=== PATIENT | female | born 1945 | race Caucasian/White ===

== ENCOUNTER → 2017-12-29 09:25 | Outpatient (POV) | payer MEDICARE, OTHER, SELFPAY ==
[2017-12-29 10:00] VITALS: BP 152/59; PULSE 81; RESP 18; TEMP 36.6; O2SAT 95
--- NOTE | 2017-12-29 11:34 | HMH.PMCON ---
Assessment and Plan (1) Degenerative disc disease, lumbar Current visit: Yes Status: Acute Category: Medical Code(s): M51.36 - Other intervertebral disc degeneration, lumbar region (2) Lumbosacral radiculopathy due to degenerative joint disease of spine Current visit: Yes Status: Acute Category: Medical Code(s): M47.27 - Other spondylosis with radiculopathy, lumbosacral region - Assessment and plan all Dx Assessment and Plan for all problems:: Plan-intrathecal pain pump trial on 01/07/2018. If successful and approved the patient may undergo placement of intrathecal pain pump system on 01/26/2018 HPI - Data of Consult Patient: new to practice Requesting Physician: Adria Leo MD Primary Care Provider: Rick Owusu MD Family Provider: Rick Owusu MD - Consult Narrative Reason for consult: DDD lumbar spine with radiculopathy, nonfunctioning stimulator system History of present illness: Ms. Laird is a 72 year old female Being considered for an intrathecal pain pump system. Patient has DDD lumbar spine with radiculopathy. She also has significant neuropathy and back pain and weakness. She had a stimulator system placed without success and pain relief. She is failed oral medications, therapy and other treatments. She has intrathecal pain pump trial on 01/07/2018. CC: Adria Leo MD [facility] History Comment: Illnesses-diabetes mellitus with insulin dependency, hypothyroidism, hyperlipidemia, hypertension, GERD, COPD with oxygen dependency, fibromyalgia, recent diagnosed glaucoma Comment: Operations-appendectomy, C-sections ?2, hysterectomy, spinal cord stimulator 2-1/2 years ago Meds Allergies Allergy/AdvReac Type Severity Reaction Status Date / Time atorvastatin [From LIPITOR] Allergy Unknown I-HIVES Unverified 11/02/17 14:19 Sulfa (Sulfonamide Allergy Unknown I-HIVES Unverified 11/02/17 14:19 Antibiotics) [SULFA (SULFONAMIDE ANTIBIOTICS)]
--- NOTE | 2017-12-29 11:37 | P.CONS_ITS ---
Assessment and Plan (1) Degenerative disc disease, lumbar Current visit: Yes Status: Acute Category: Medical Code(s): M51.36 - Other intervertebral disc degeneration, lumbar region (2) Lumbosacral radiculopathy due to degenerative joint disease of spine Current visit: Yes Status: Acute Category: Medical Code(s): M47.27 - Other spondylosis with radiculopathy, lumbosacral region - Assessment and plan all Dx Assessment and Plan for all problems:: Plan-intrathecal pain pump trial on 01/07/2018. If successful and approved the patient may undergo placement of intrathecal pain pump system on 01/26/2018 HPI - Data of Consult Patient: new to practice Requesting Physician: Adria Leo MD Primary Care Provider: Rick Owuus MD Family Provider: Rick Owusu MD - Consult Narrative Reason for consult: DDD lumbar spine with radiculopathy, nonfunctioning stimulator system History of present illness: Ms. Laird is a 72 year old female Being considered for an intrathecal pain pump system. Patient has DDD lumbar spine with radiculopathy. She also has significant neuropathy and back pain and weakness. She had a stimulator system placed without success and pain relief. She is failed oral medications, therapy and other treatments. She has intrathecal pain pump trial on 01/07/2018. CC: Adria Leo MD [facility] History Comment: Illnesses-diabetes mellitus with insulin dependency, hypothyroidism, hyperlipidemia, hypertension, GERD, COPD with oxygen dependency, fibromyalgia, recent diagnosed glaucoma Comment: Operations-appendectomy, C-sections ?2, hysterectomy, spinal cord stimulator 2-1/2 years ago Meds Allergies Allergy/AdvReac Type Severity Reaction Status Date / Time atorvastatin [From LIPITOR] Allergy Unknown I-HIVES Unverified 11/02/17 14:19 Sulfa (Sulfonamide Allergy Unknown I-HIVES Unverified 11/02/17 14:19 Antibiotics) [SULFA (SULFONAMIDE ANTIBIOTICS)]
== END ==
PROVIDERS: Family Provider Internal Medicine Adolescent Medicine; PCP Internal Medicine Adolescent Medicine; Visit Provider Surgery
DX: Z01.818 Encounter for other preprocedural examination (principal)
CPT/HCPCS: 99211

== ENCOUNTER → 2018-01-07 09:05 | Day surgery (SDC) | payer MEDICARE, OTHER, SELFPAY ==
[2018-01-07] VITALS (11 sets, daily range): BP systolic 119–184; BP diastolic 68–94; PULSE 69–94; RESP 17–20; TEMP 36.6; O2SAT 93–98; BMI 38.7
--- NOTE | 2018-01-07 10:02 | PC.NURSE ---
PHYSICAL THERAPY AT BEDSIDE FOR PRE-EVAL
--- NOTE | 2018-01-07 11:09 | HMH.PMPROC ---
- Procedure Date: 01/07/18 Time: 11:09 Anesthesiologist:: Alexis Bocanegra MD Complications:: None Pre-procedure Diagnosis:: Degenerative disc disease of lumbar spine with lumbar radiculopathy symptoms. Post-procedure Diagnosis:: Same Indications for Procedure:: This patient is a pleasant 72-year-old white female who we are seeing for low back pain with bilateral lower extremity pain. She has a spinal cord stimulator in place which is nonfunctional. She still has increasing low back pain and some leg pain. She continues on gabapentin 800 mg 4 times a day. She is failed all conservative therapy including previous spinal cord stimulation, injections, physical therapy and she is not a surgical candidate. I believe she would be a good candidate for intrathecal therapy. I have explained the risk and benefits and answered all questions. She presents for intrathecal pump trial today. Procedure Details:: Pain pump trial Informed consent was obtained and the risk and benefits of the procedure was explained to the patient. The patient was taken to the procedure room and placed prone on the procedure table. Patient was prepped and draped in sterile fashion. C-arm fluoroscopy was used to view the lumbar spine. The skin and subcutaneous tissues were anesthetized using lidocaine. I placed a 18-gauge spinal needle into the L4-5 interspace and advanced until clear CSF was obtained. After this intrathecal catheter was inserted and advanced very easily to the L1 vertebral body. The needle was withdrawn. We were able to freely withdraw clear CSF through the catheter. The catheter was secured in place and the patient was taken to recovery in stable condition. Patient tolerated the procedure well with no complications. After obtaining one set of vitals patient was bolused with 25 mcg of intrathecal fentanyl single shot. We reevaluated the patient after 30 minutes to 1 hour. She was also reassessed by physical therapy. Patient was assessed and was doing well however was not able to gauge how much pain relief she was getting. She needed to be more active to properly assess efficacy. Intrathecal catheter was removed and a Band-Aid was placed. Patient was discharged neurologically intact. Plan and Disposition:: We will follow-up with her in 2 weeks. We will reevaluate her symptoms at that time.
--- NOTE | 2018-01-07 12:00 | PC.NURSE ---
PHYSICAL THERAPY AT BEDSIDE FOR POST EVAL
--- NOTE | 2018-01-07 12:11 | PC.NURSE ---
PT STATES PAIN IS BETTER, RATES PAIN IS 6/10, C/O ITCHING BENADRYL GIVEN PER MAR, LUNCH TRAY ORDERED FOR PT, PT DENIES ANY FURTHER NEEDS/CONCERNS AT THIS TIME
--- NOTE | 2018-01-07 13:02 | PC.NURSE ---
MD AT BEDSIDE FOR POST EVAL, PT STILL C/O ITCHING BUT STATES IT HAS GOTTEN BETTER, REPORTS PAIN IS BETTER WELL.
[2018-01-13 15:05] LABS: POC Glucose,Bedside 173 mg/dL (70-110)
== END ==
PROVIDERS: Family Provider Internal Medicine Adolescent Medicine; PCP Internal Medicine Adolescent Medicine; Visit Provider Anesthesiology
DX: M51.16 Intervertebral disc disorders with radiculopathy, lumbar region (principal); E11.9 Type 2 diabetes mellitus without complications; Z79.4 Long term (current) use of insulin
CPT/HCPCS: 62323; 82962

== ENCOUNTER → 2018-01-17 14:53 | Outpatient (POV) | payer MEDICARE, OTHER, SELFPAY ==
[2018-01-17 15:54] VITALS: BP 189/89; PULSE 85; RESP 20; O2SAT 93; BMI 39.3
--- NOTE | 2018-01-17 16:58 | HMH.PAINSOAP ---
[facility] Pain Management SOAP Note Subjective:: Patient is a 72-year-old female who presents today for follow-up after her intrathecal pain trial. Patient states she did not receive any relief from her intrathecal pain pump trial however her range of motion with physical therapy increase greatly posttrial. Patient is not interested in pursuing the pain pump and at this point I agree. Patient states she is unable to sleep. Patient has tried and failed gabapentin, Lyrica, Cymbalta, amitriptyline, neurostimulator. Patient currently started on Lexapro states that that does help some. Patient has had injections in the past and states that she does not remember how long these work for her. Patient is wanting to do injections moving forward. Patient states her pain is in her low back and radiates into her bilateral lower legs equally. Patient states nothing makes the pain better. Patient is not on any blood thinners. Patient is also tried and failed anti-inflammatory medications and physical therapy. ROS General: no recent weight change, no fever, Respiratory: no cough, no shortness of air, no recurring pulmonary infections Cardiovascular/Peripheral Vascular: No chest pain, No palpitations, no edema, no shortness of breath. Gastrointestinal: no incontinence, normal bowel movements reported Genitourinary: no incontinence Musculoskeletal: Back pain, bilateral leg pain Psychiatric: normal mood/ affect, Neurological: Intermittent weakness in bilateral lower extremities, [denies balance issues] Objective:: Physical Exam General: Alert and oriented x3, no acute distress, pleasant and cooperative, [on room air] Lungs: Resps E/U, Symmetrical chest expansion, Eyes: PERRL Musculoskeletal: Flexion and extension of lumbar spine somewhat guarded secondary to pain, deep tendon reflexes normal, strength in upper and lower extremities [5/5], [abnormal gait noted] Neurological: speech clear, bearing maker equal, no gross sensory deficits Assessment:: Degenerative disc disease of the lumbar spine, lumbar radiculopathy Plan:: We will plan a L4-L5 lumbar epidural steroid injection to see if this helps the patient patient does not recall if injective therapy helped her in the past or not. Patient failed intrathecal pain pump trial patient is failed nerve stimulation as well. Patient tried and failed anti-inflammatories, medications, physical therapy. This note was dictated using voice recognition software and may contain errors or omissions
--- NOTE | 2018-01-17 17:01 | P.CONS_ITS ---
[facility] Pain Management SOAP Note Subjective:: Patient is a 72-year-old female who presents today for follow-up after her intrathecal pain trial. Patient states she did not receive any relief from her intrathecal pain pump trial however her range of motion with physical therapy increase greatly posttrial. Patient is not interested in pursuing the pain pump and at this point I agree. Patient states she is unable to sleep. Patient has tried and failed gabapentin, Lyrica, Cymbalta, amitriptyline, neurostimulator. Patient currently started on Lexapro states that that does help some. Patient has had injections in the past and states that she does not remember how long these work for her. Patient is wanting to do injections moving forward. Patient states her pain is in her low back and radiates into her bilateral lower legs equally. Patient states nothing makes the pain better. Patient is not on any blood thinners. Patient is also tried and failed anti-inflammatory medications and physical therapy. ROS General: no recent weight change, no fever, Respiratory: no cough, no shortness of air, no recurring pulmonary infections Cardiovascular/Peripheral Vascular: No chest pain, No palpitations, no edema, no shortness of breath. Gastrointestinal: no incontinence, normal bowel movements reported Genitourinary: no incontinence Musculoskeletal: Back pain, bilateral leg pain Psychiatric: normal mood/ affect, Neurological: Intermittent weakness in bilateral lower extremities, [denies balance issues] Objective:: Physical Exam General: Alert and oriented x3, no acute distress, pleasant and cooperative, [ on room air] Lungs: Resps E/U, Symmetrical chest expansion, Eyes: PERRL Musculoskeletal: Flexion and extension of lumbar spine somewhat guarded secondary to pain, deep tendon reflexes normal, strength in upper and lower extremities [5/5], [abnormal gait noted] Neurological: 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 Patient failed intrathecal pain pump trial patient is failed nerve stimulation as well. Patient tried and failed anti-inflammatories, medications , physical therapy. This note was dictated using voice recognition software and may contain errors or omissions
== END ==
PROVIDERS: Family Provider Internal Medicine Adolescent Medicine; PCP Internal Medicine Adolescent Medicine; Visit Provider Clinical Nurse Specialist Family Health
DX: M54.16 Radiculopathy, lumbar region (principal)
CPT/HCPCS: 99212

== ENCOUNTER → 2018-02-18 13:45 | Day surgery (SDC) | payer MEDICARE, OTHER, SELFPAY ==
[2018-02-18 13:59] VITALS: BP 165/74; PULSE 96; RESP 20; TEMP 36.8; O2SAT 98; BMI 39.3
--- NOTE | 2018-02-18 14:09 | HMH.PMPROC ---
- Procedure Date: 02/18/18 Time: 14:09 Anesthesiologist:: Alexis Bocanegra MD Complications:: None Pre-procedure Diagnosis:: Degenerative disc disease of the lumbar spine with lumbar radiculopathy symptoms Post-procedure Diagnosis:: Same Indications for Procedure:: This patient is a pleasant 72-year-old white female who we are treating for low back pain with lumbar radiculopathy symptoms. She did not get any relief from her intrathecal pain pump trial. She continues to have significant low back pain with radicular symptoms. She is not on any blood thinners. She is wanting to see if injections will help with her pain symptoms. We will do a lumbar pleural steroid injection today. Procedure Details:: Lumbar epidural steroid injection under fluoroscopy Informed consent was obtained and the risk and benefits of the procedure was explained to the patient. The patient was taken to the procedure room. The patient was placed prone on the procedure table. The patient was prepped and draped in sterile fashion. C-arm fluoroscopy was used to view the lumbar spine. Skin and subcutaneous tissues were anesthetized using lidocaine. I placed an 18-gauge epidural needle and advanced into the L4-L5 interspace using fluoroscopic guidance and [id number] to air. After confirmation of needle placement in the epidural space with dye I injected 2 mL of lidocaine 1.5% with Depo-Medrol 80 mg. Patient tolerated the procedure well with no complications. Plan and Disposition:: We will follow-up with her in 2 weeks. We will reevaluate her symptoms at that time.
[2018-02-18 14:10] VITALS: BP 158/68; PULSE 87; RESP 12
[2018-02-18 14:11] VITALS: BP 156/84; PULSE 88; RESP 18
--- NOTE | 2018-02-18 14:16 | P.PCN_ITS ---
- Procedure Date: 02/18/18 Time: 14:09 Anesthesiologist:: Alexis Bocanegra MD Complications:: None Pre-procedure Diagnosis:: Degenerative disc disease of the lumbar spine with lumbar radiculopathy symptoms Post-procedure Diagnosis:: Same Indications for Procedure:: This patient is a pleasant 72-year-old white female who we are treating for low back pain with lumbar radiculopathy symptoms. She did not get any relief from her intrathecal pain pump trial. She continues to have significant low back pain with radicular symptoms. She is not on any blood thinners. She is wanting to see if injections will help with her pain symptoms. We will do a lumbar pleural steroid injection today. Procedure Details:: Lumbar epidural steroid injection under fluoroscopy Informed consent was obtained and the risk and benefits of the procedure was explained to the patient. The patient was taken to the procedure room. The patient was placed prone on the procedure table. The patient was prepped and draped in sterile fashion. C-arm fluoroscopy was used to view the lumbar spine. Skin and subcutaneous tissues were anesthetized using lidocaine. I placed an 18-gauge epidural needle and advanced into the L4-L5 interspace using fluoroscopic guidance and [id number] to air. After confirmation of needle placement in the epidural space with dye I injected 2 mL of lidocaine 1.5 % with Depo-Medrol 80 mg. Patient tolerated the procedure well with no complications. Plan and Disposition:: We will follow-up with her in 2 weeks. We will reevaluate her symptoms at that time.
[2018-02-18 14:32] VITALS: BP 135/72; PULSE 84; O2SAT 96
[2018-02-21 07:47] LABS: POC Glucose,Bedside 92 (70-110)
== END ==
PROVIDERS: Family Provider Internal Medicine Adolescent Medicine; PCP Internal Medicine Adolescent Medicine; Visit Provider Anesthesiology
DX: M51.16 Intervertebral disc disorders with radiculopathy, lumbar region (principal); E11.8 Type 2 diabetes mellitus with unspecified complications; Z79.4 Long term (current) use of insulin
CPT/HCPCS: 62323; 82962; J1040; Q9966

== ENCOUNTER → 2018-03-02 08:46 | Outpatient (CLI) | payer MEDICARE, OTHER, SELFPAY ==
--- NOTE | 2018-03-02 08:58 | XR_ITS ---
XR wrist LT min 3V HISTORY pain and swelling following injury ITS.REASON: LT WRIST PAIN ORDERING PHYSICIAN: Rick Owusu MD PATIENT AGE: 72 years COMPARISON: None FINDINGS: There is a somewhat ill-defined lucency involving the articular surface of the distal radius at the radioscaphoid region along with some minimal cortical irregularity involving the lateral aspect of the distal radius at the epiphyseal remnant. These findings are suspicious for a nondisplaced fracture and could be confirmed with CT if clinically warranted. No other significant anomalies are evident. IMPRESSION: Suspect nondisplaced fracture of the distal radius with a longitudinal and transverse component. A cleft of the distal radius with epiphyseal remnant could have a similar appearance therefore, CT may be needed for further evaluation to confirm the presence or absence of the fracture if clinically warranted
--- NOTE | 2018-03-02 08:58 | XR_ITS ---
XR hand LT min 3V HISTORY: Pain and swelling following injury ITS.REASON: LT WRIST PAIN ORDERING PHYSICIAN: Rick Owusu MD PATIENT AGE: 72 years COMPARISON: FINDINGS: No fracture or dislocation. No lytic or blastic change. There is normal mineralization.. The joint spaces are well-preserved. No significant degenerative/arthritic changes. No erosive changes evident.. There is suspected fracture the distal radius which is described in the wrist report. IMPRESSION: 1. No fracture of the hand evident. 2. Suspect nondisplaced fracture of the distal radius
== END ==
PROVIDERS: PCP Internal Medicine Adolescent Medicine; Visit Provider Internal Medicine Adolescent Medicine
DX: M25.532 Pain in left wrist (principal); M79.642 Pain in left hand
CPT/HCPCS: 73110; 73130

== ENCOUNTER → 2018-03-07 14:27 | Outpatient (POV) | payer MEDICARE, OTHER, SELFPAY ==
[2018-03-07 14:34] VITALS: BP 168/71; PULSE 85; RESP 20; TEMP 36.6; O2SAT 98; BMI 39.3
--- NOTE | 2018-03-07 14:51 | HMH.PAINSOAP ---
[facility] Pain Management SOAP Note Subjective:: Patient is a 72-year-old white female who presents today for follow-up after the patient states she had no relief from this. Patient is tried and failed intrathecal pain pump trial, neuro stimulation, physical therapy. Patient recently fell and broke her left wrist. She states she has not had a recent MRI or CT scan of her back. Patient has tried and failed gabapentin, Lyrica, Cymbalta, amitriptyline, neurostimulator and chronic intrathecal pain therapy, injections. I discussed with the patient that our only option with her is to send her to a neurosurgeon. Also offered potential biofeedback therapy which she states she has tried and failed in the past. ROS General: no recent weight change, no fever, no sleep disturbances Respiratory: no cough, no shortness of air, no recurring pulmonary infections Cardiovascular/Peripheral Vascular: No chest pain, No palpitations, no edema, no shortness of breath. Gastrointestinal: no incontinence, normal bowel movements reported Genitourinary: no incontinence Musculoskeletal: Back pain, bilateral leg pain Psychiatric: normal mood/ affect Neurological: [denies weakness in extremities], [denies balance issues] Objective:: Physical Exam General: Alert and oriented x3, no acute distress, pleasant and cooperative, [on room air] Lungs: Resps E/U, Symmetrical chest expansion, Eyes: PERRL Musculoskeletal: Flexion and extension of lumbar spine somewhat guarded secondary to pain, deep tendon reflexes normal, strength in upper and lower extremities [5/5], [abnormal gait noted] 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 I discussed with her potentially going to see neurosurgeon. I encouraged her to get her wrist looked at in taking care of prior to making any decisions. At this point there is nothing more we can do for her at our clinic. If she like to pursue a neurosurgical consultation I will be happy to order an MRI and for her. This note was dictated using voice recognition software and may contain errors or omissions
--- NOTE | 2018-03-07 14:55 | P.CONS_ITS ---
[facility] Pain Management SOAP Note Subjective:: Patient is a 72-year-old white female who presents today for follow-up after the patient states she had no relief from this. Patient is tried and failed intrathecal pain pump trial, neuro stimulation, physical therapy. Patient recently fell and broke her left wrist. She states she has not had a recent MRI or CT scan of her back. Patient has tried and failed gabapentin, Lyrica, Cymbalta, amitriptyline, neurostimulator and chronic intrathecal pain therapy, injections. I discussed with the patient that our only option with her is to send her to a neurosurgeon. Also offered potential biofeedback therapy which she states she has tried and failed in the past. ROS General: no recent weight change, no fever, no sleep disturbances Respiratory: no cough, no shortness of air, no recurring pulmonary infections Cardiovascular/Peripheral Vascular: No chest pain, No palpitations, no edema, no shortness of breath. Gastrointestinal: no incontinence, normal bowel movements reported Genitourinary: no incontinence Musculoskeletal: Back pain, bilateral leg pain Psychiatric: normal mood/ affect Neurological: [denies weakness in extremities], [denies balance issues] Objective:: Physical Exam General: Alert and oriented x3, no acute distress, pleasant and cooperative, [ on room air] Lungs: Resps E/U, Symmetrical chest expansion, Eyes: PERRL Musculoskeletal: Flexion and extension of lumbar spine somewhat guarded secondary to pain, deep tendon reflexes normal, strength in upper and lower extremities [5/5], [abnormal gait noted] Neurological: speech clear, 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 I discussed with her potentially going to see neurosurgeon. I encouraged her to get her wrist looked at in taking care of prior to making any decisions. At this point there is nothing more we can do for her at our clinic. If she like to pursue a neurosurgical consultation I will be happy to order an MRI and for her. This note was dictated using voice recognition software and may contain errors or omissions
== END ==
PROVIDERS: Family Provider Internal Medicine Adolescent Medicine; PCP Internal Medicine Adolescent Medicine; Visit Provider Clinical Nurse Specialist Family Health
DX: M54.16 Radiculopathy, lumbar region (principal)
CPT/HCPCS: 99212

== ENCOUNTER → 2018-03-09 11:10 | Outpatient (CLI) | payer MEDICARE, OTHER, SELFPAY ==
--- NOTE | 2018-03-09 11:14 | XR_ITS ---
XR wrist LT min 3V HISTORY follow-up fracture ITS.REASON: left wrist fracture after cast applied ORDERING PHYSICIAN: Jah Benavides MD PATIENT AGE: 72 years COMPARISON: 03/02/2018 FINDINGS: Study is obtained through cast. The previously noted lucency at the distal radius is less apparent and could be related to overlying cast. Consider CT scan to confirm the presence of the fracture. Normal alignment. No other significant anomalies. IMPRESSION: Lucency of the distal radius is less apparent which could be related to overlying cast. Consider CT scan to confirm the presence of a fracture
== END ==
PROVIDERS: PCP Internal Medicine Adolescent Medicine; Visit Provider Orthopaedic Surgery
DX: S62.102A Fracture of unspecified carpal bone, left wrist, initial encounter for closed fracture (principal)
CPT/HCPCS: 73110

== ENCOUNTER → 2018-03-24 15:46 | Outpatient (CLI) | payer MEDICARE, OTHER, SELFPAY ==
--- NOTE | 2018-03-24 15:48 | XR_ITS ---
XR wrist LT min 3V HISTORY follow-up wrist fracture ITS.REASON: left wrist fx ORDERING PHYSICIAN: Jah Benavides MD PATIENT AGE: 72 years COMPARISON: 03/09/2019 FINDINGS: There is an overlying cast obscuring fine bony detail. No displaced fractures apparent. Previously noted lucency of the distal radius is less apparent. IMPRESSION: Good alignment healing distal radial fracture
== END ==
PROVIDERS: PCP Internal Medicine Adolescent Medicine; Visit Provider Orthopaedic Surgery
DX: S52.502A Unspecified fracture of the lower end of left radius, initial encounter for closed fracture (principal)
CPT/HCPCS: 73110

== ENCOUNTER → 2018-04-07 09:33 | Outpatient (CLI) | payer MEDICARE, OTHER, SELFPAY ==
--- NOTE | 2018-04-07 09:39 | XR_ITS ---
XR wrist LT min 3V HISTORY follow-up fracture ITS.REASON: out of cast ORDERING PHYSICIAN: Jah Benavides MD PATIENT AGE: 72 years Comparison: 03/24/2018 FINDINGS: The cast has been removed. Distal radial fractures is barely perceptible indicating healing of the fracture. IMPRESSION: Good alignment healing distal radial fracture
== END ==
PROVIDERS: PCP Internal Medicine Adolescent Medicine; Visit Provider Orthopaedic Surgery
DX: S52.502A Unspecified fracture of the lower end of left radius, initial encounter for closed fracture (principal)
CPT/HCPCS: 73110

== ENCOUNTER → 2018-05-04 07:04 | Outpatient (CLI) | payer MEDICARE, OTHER, SELFPAY ==
[2018-05-04 14:19] LABS: Basophils % 0.4 % (0.1-2.0); Eosinophils # 0.3 K/mm3 (0.0-0.4); Eosinophils % 3.1 % (0.1-12.0); Hematocrit 36.4 % (37.0-47.0); Hemoglobin 11.1 g/dL (12.2-16.2); Lymphocytes # 2.3 K/mm3 (0.7-4.5); Lymphocytes % 27.7 K/mm3 (10-50); Mean Corpuscular HGB Conc 30.4 g/dL (31.8-35.4); Mean Corpuscular Hemoglobin 26.4 pg (27.0-31.2); Mean Corpuscular Volume 86.9 fl (81-99); Mean Platelet Volume 8.6 fl (7.4-10.4); Monocytes # 0.4 K/mm3 (0.1-1.0); Monocytes % 4.9 % (1.7-9.3); Neutrophils # 5.4 K/mm3 (1.8-7.8); Neutrophils % 63.9 % (37.0-80.0); Platelet Count 405 K/mm3 (142-424); Red Blood Count 4.19 M/mm3 (4.20-5.40); Red Cell Distribution Width 14.4 % (11.5-17.5); White Blood Count 8.4 K/mm3 (4.8-10.8)
[2018-05-04 14:44] LABS: Albumin Level 3.3 gm/dL (3.4-5.0); Albumin/Globulin Ratio 0.9 (1.1-1.8); Chloride 101 mmol/L (98-107); Globulin 3.8 gm/dl (1.3-3.2); Glucose 194 mg/dL (74-106); Total Protein,Serum 7.1 gm/dL (6.4-8.2)
[2018-05-04 15:09] LABS: Alanine Aminotransferase 12 U/L (12-78); Alkaline Phosphatase 121 U/L (46-116); Aspartate Amino Transferase 16 U/L (15-37); Bilirubin,Total 0.3 mg/dL (0.2-1.0); Blood Urea Nitrogen 15 mg/dL (7-18); Carbon Dioxide 27 mmol/L (21.0-32.0); Chol/HDL Ratio 2.8 (1-3.5); Cholesterol 159 mg/dL (140-200); Creatinine,Serum 1.13 mg/dL (0.55-1.02); Estimated Glomerular Filt Rate 47 ml/min (>60); GFR (African American) 57 ML/MIN (>60); HDL Cholesterol 57 mg/dL (29-89); LDL Cholesterol 79 mg/dL (0-130); Sodium 138 mmol/L (136-145); Thyroid Stimulating Hormone 0.38 uIU/ml (0.358-3.740); Triglycerides 116 mg/dL (30-200); VLDL Cholesterol 23 mg/dL (0-40)
[2018-05-04 18:37] LABS: Hemoglobin A1C 7.8 % (0.0-7.0)
== END ==
PROVIDERS: Visit Provider Internal Medicine Adolescent Medicine
DX: E11.42 Type 2 diabetes mellitus with diabetic polyneuropathy (principal); G20 Parkinson's disease; E78.5 Hyperlipidemia, unspecified; E03.9 Hypothyroidism, unspecified
CPT/HCPCS: 36415; 80053; 80061; 83036; 84443; 85025

== ENCOUNTER → 2018-05-06 10:10 | Outpatient (CLI) | payer MEDICARE, OTHER, SELFPAY ==
--- NOTE | 2018-05-06 10:12 | MM_ITS ---
MM Dig screening mamm BI w/CAD CAD Screening ORDERING PHYSICIAN : Rick Owusu MD PATIENT AGE: 72 years GENDER: Female COMPARISON: Previous mammograms:. Images from [facility] June 2013, March 2012, October 2009 INDICATION: Routine screening. No hormones no new complaints noncontributory family history TECHNIQUE: Standard CC and MLO images were obtained. R2 CAD reviewed. FINDINGS: We have finally received a [facility] prior studies for comparison Patient with Low-density breast bilaterally with no dominant mass nor suspicious calcifications either breast RIGHT BREAST:Stable right breast follow-up in one year LEFT BREAST:Small less than 4 mm new focal density superior left breast of this is far superior. Is there a a skin mole or tag in this region. Doubt is of significance but it is a new feature and because of this I would suggest patient return for spot CC and MLO and 90 degree view.... & If skin tag or mole a tangent in view with mole marker Presuming it is not a skin abnormality then ultrasound also suggested. But It is small and may not be evident on ultrasound IMPRESSION: Left breast. Small 4 mm density at the far superior left breast.. Most likely benign feature but Recommend additional spot views (& as well as tangential views with normal marker, IF a skin mole present) if no skin mole or findings evident to account for this density been ultrasound would be suggested . Right breast. No new areas of concern Low-density breast. BI-RADS Category: 0 Need Additional Imaging Evaluaiton. RECOMMENDED FOLLOW-UP: IMM - IMMEDIATE FOLLOW-UP RECOMMENDED Additional views left breast. With Ultrasound if density persist (A letter has been sent to the patient regarding results of the study.)
== END ==
PROVIDERS: Family Provider Internal Medicine Adolescent Medicine; PCP Internal Medicine Adolescent Medicine; Visit Provider Internal Medicine Adolescent Medicine
DX: Z12.31 Encounter for screening mammogram for malignant neoplasm of breast (principal)
CPT/HCPCS: 77067

== ENCOUNTER → 2018-05-27 10:56 | Outpatient (CLI) | payer MEDICARE, OTHER, SELFPAY ==
--- NOTE | 2018-05-27 11:06 | US_ITS ---
MM Dig mamm DX unilat LT CAD, US breast LT complete Ordering Physician: Rick Owusu MD Patient Age: 72 years Female COMPARISON: 2018 screening bilateral mammogram, and 07/05/2013 outside bilateral mammogram. INDICATION: Further evaluation small nodularity upper-outer quadrant DIAGNOSTIC MAMMOGRAM with Spot views right breast TECHNIQUE: Spot MLO, 90 degree, spot axillary cc views performed along with a for MLO view. The tiny density upper-outer quadrant left breast is again noted and measures less than 4 mm. On today's additional views it seems to have some central lucency at its posterior margin with reniform shape, which may reflect a small intramammary lymph node. .Near 1:00 Clock position left breast . There are also 3 or 4 small punctate calcifications loosely grouped at the deep 12-1 o'clock position left breast which would benefit from follow-up as well. Which would benefit from 6 month follow-up as well ===== ULTRASOUND LEFT BREAST including axillary survey technique: Ultrasound entire breast was performed including survey of the axilla. Particular attention directed towards the small density at the superior outer quadrant Findings: On the second set of images thickened from today there is a small 2.3 mm cystic area with some surrounding echogenic character measuring just over 4 mm mm diameter... May reflect a small developing lipoid cyst. A likely corresponds with the area at 1:00 Other areas noted on ultrasound of appear to be merely glandular tissue and not of concern. Axillary survey with. No significant findings. No no abnormal nodes ...... IMPRESSION: ......... 1. Small 4 mm density upper-outer quadrant left breast. Again evident most likely benign was some lucency at its posterior margin either reflecting intramammary node; or possibly a small developing lipoid cyst/oil cyst given appearance of the likely corresponding area on ultrasound 2... Note 3 or 4 tiny benign-appearing punctate calcifications deep left breast most likely benign but would benefit from follow-up as well 3. Suggest Follow-up left mammogram and ultrasound 6 months to confirm stability, likely with resuming annual scheduled thereafter BI-RADS Category: 3 Benign Finding Short Term Follow-up RECOMMENDED FOLLOW-UP: 6M 6 MONTH FOLLOW-UP Left mammogram and left breast ultrasound 6 months A letter has been sent to the patient regarding results of the study.)
== END ==
PROVIDERS: Family Provider Internal Medicine Adolescent Medicine; PCP Internal Medicine Adolescent Medicine; Visit Provider Internal Medicine Adolescent Medicine
DX: R92.8 Other abnormal and inconclusive findings on diagnostic imaging of breast (principal)
CPT/HCPCS: 76641; 77065

== ENCOUNTER → 2018-11-17 13:06 | Outpatient (CLI) | payer MEDICARE, OTHER, SELFPAY ==
--- NOTE | 2018-11-17 13:11 | MM_ITS ---
MM Dig mamm DX unilat LT CAD, US breast LT complete INDICATION: 6 month follow-up left breast abnormality ORDERING PHYSICIAN: Rick Owusu MD PATIENT AGE: 73 years COMPARISON: 05/27/2018, 05/06/2018 TECHNIQUE: Standard images performed along with spot compression views and left breast ultrasound FINDINGS: Average fibroglandular tissue. No malignant appearing mass or malignant appearing microcalcification. Previously noted asymmetric density in the superior aspect of the left breast is less apparent. No change in the small cluster of microcalcifications in the central aspect of the left breast.. There remains a small asymmetric density in the lateral left breast on the CC view unchanged. This measures approximately 2 mm and is seen on the spot compression view. Left breast ultrasound: No cystic or solid lesions. No malignant nodules apparent. Small nodes are present in the axilla. The previously noted area of mixed echogenicity at 1:00 is not identified on today's exam. IMPRESSION: No evidence of malignancy. Benign findings BI-RADS Category: 2 Benign Finding(s) RECOMMENDED FOLLOW-UP: 6M - 6 MONTH FOLLOW-UP (A letter has been sent to the patient regarding results of the study.)
== END ==
PROVIDERS: PCP Internal Medicine Adolescent Medicine; Visit Provider Internal Medicine Adolescent Medicine
DX: R92.8 Other abnormal and inconclusive findings on diagnostic imaging of breast (principal)
CPT/HCPCS: 76641; 77065

== ENCOUNTER → 2018-12-30 10:29 | Outpatient (CLI) | payer MEDICARE, OTHER, SELFPAY ==
--- NOTE | 2018-12-30 10:41 | XR_ITS ---
XR chest 2V HISTORY: ITS.REASON: PERISTENT COUGH [id number] ORDERING PHYSICIAN: Thea Tam PATIENT AGE: 73 years COMPARISON: None FINDINGS: The cardiomediastinal silhouette and pulmonary vascularity are within normal limits. There are atelectatic or fibrotic changes in the left lung base. The remaining lungs are clear. There is an epidural stimulator device present over the mid thoracic spine. No acute bony findings. IMPRESSION: Mild left base or atelectasis or fibrosis otherwise negative
[2018-12-30 11:21] LABS: Basophils % 0.3 % (0.1-2.0); Eosinophils # 0.2 K/mm3 (0.0-0.4); Eosinophils % 1.3 % (0.1-12.0); Hematocrit 32.4 % (37.0-47.0); Hemoglobin 10.3 g/dL (12.2-16.2); Lymphocytes # 2.3 K/mm3 (0.7-4.5); Lymphocytes % 20.2 % (10-50); Mean Corpuscular HGB Conc 31.8 g/dL (31.8-35.4); Mean Corpuscular Hemoglobin 26.9 pg (27.0-31.2); Mean Corpuscular Volume 84.6 fl (81-99); Monocytes # 0.4 K/mm3 (0.1-1.0); Monocytes % 3.2 % (1.7-9.3); Neutrophils # 8.7 K/mm3 (1.8-7.8); Platelet Count 453 K/mm3 (142-424); Red Blood Count 3.83 M/mm3 (4.20-5.40); Red Cell Distribution Width 16.3 % (11.5-17.5); White Blood Count 11.5 K/mm3 (4.8-10.8)
[2018-12-30 11:36] LABS: Alanine Aminotransferase 26 U/L (12-78); Albumin Level 3.1 gm/dL (3.4-5.0); Albumin/Globulin Ratio 0.6 (1.1-1.8); Alkaline Phosphatase 101 U/L (46-116); Anion Gap 16.2 mEq/L (5-15); Aspartate Amino Transferase 15 U/L (15-37); Bilirubin,Total 0.3 mg/dL (0.2-1.0); Blood Urea Nitrogen 19 mg/dL (7-18); Carbon Dioxide 26 mmol/L (21.0-32.0); Chloride 98 mmol/L (98-107); Creatinine,Serum 1.12 mg/dL (0.55-1.02); Estimated Glomerular Filt Rate 48 ml/min (>60); GFR (African American) 58 ML/MIN (>60); Globulin 4.9 gm/dl (1.3-3.2); Glucose 229 mg/dL (74-106); Potassium 4.2 mmoL/L (3.5-5.1); Sodium 136 mmol/L (136-145)
== END ==
PROVIDERS: PCP Internal Medicine Adolescent Medicine; Visit Provider Nurse Practitioner Family
DX: R05 Cough (principal); J06.9 Acute upper respiratory infection, unspecified
CPT/HCPCS: 36415; 71046; 80053; 85025